=== PATIENT | female | born 1990 | race Caucasian/White ===

== ENCOUNTER 2016-12-14 21:51 | Emergency (ER) | payer OTHER ==
[~2016-12-14 21:51] MED LIST: ACULAR10 ML OP; ALBUTEROL17 GM; AMOXICILLIN500 M1 PO; AMOXICILLIN875 MG PO; AZO CRANBERRY250 MG; BACLOFEN10 MG PO; BACTRIM DS TABL1 TA1 PO; BACTROBAN15 GM TOP; CIPRO PO; DICYCLOMINE HCL20 MG PO; EXCEDRIN MIGRA1 EACH; FIORICET PO; FIORICET1 TAB PO; FLEXERIL10 M1 PO; IBUPROFEN800 MG PO; KEFLEX500 M1 PO; LORTAB 10 MG-3473 ML PO; LORTAB 7.51 TAB PO; NO MEDICATIONS; PHENERGAN PR; PHENERGAN25 M1 PO; PHENERGAN25 MG PO; POLYTRIM O10 ML OPTH OP; PRENA1 CHEW TABL1 MG PO; PRENATAL MULITV1 TAB PO; PRENATAL1 TA1 PO; RAYOS5 MG PO; TORADOL10 MG PO; ULTRACET TABLET1 TAB PO; ULTRAM PO; VICODIN 5/1 TAB 5/50 PO; VOLTAREN50 MG PO; VOLTAREN75 MG PO; ZITHROMAX PO; ZOFRAN ODT4 MG PO; ZOFRANODT PO
== END 2016-12-14 23:20 | disposition home or self-care (01) ==
LOC: SED 21:51
DX: S39.012A Strain of muscle, fascia and tendon of lower back, initial encounter (principal); G43.909 Migraine, unspecified, not intractable, without status migrainosus; F17.200 Nicotine dependence, unspecified, uncomplicated; Z88.8 Allergy status to other drugs, medicaments and biological substances; Y93.72 Activity, wrestling
CPT/HCPCS: 96372; 99283; J1885

== ENCOUNTER 2017-02-07 21:34 | Emergency (ER) | payer OTHER | END 2017-02-07 21:51 | disposition left against medical advice (07) | LOC: SED 21:34 | DX: Z53.21 Procedure and treatment not carried out due to patient leaving prior to being seen by health care provider (principal) ==

== ENCOUNTER 2017-02-16 19:24 | Emergency (ER) | payer OTHER | END 2017-02-16 20:07 | disposition home or self-care (01) | LOC: SED 19:24 | DX: L02.31 Cutaneous abscess of buttock (principal); G43.909 Migraine, unspecified, not intractable, without status migrainosus; F17.210 Nicotine dependence, cigarettes, uncomplicated; Z88.8 Allergy status to other drugs, medicaments and biological substances | CPT/HCPCS: 10060; 87070; 87205; 99283 ==

== ENCOUNTER 2017-06-10 18:56 | Emergency (ER) | payer OTHER ==
[~2017-06-10] VITALS: Ht 167.6 cm; Wt 102.5 kg
== END 2017-06-10 19:45 | disposition home or self-care (01) ==
LOC: SED 18:56
DX: J02.9 Acute pharyngitis, unspecified (principal); J32.9 Chronic sinusitis, unspecified; G43.909 Migraine, unspecified, not intractable, without status migrainosus; F17.200 Nicotine dependence, unspecified, uncomplicated
CPT/HCPCS: 99283